=== PATIENT | male | born 1970 | race Native Hawaiian/Other Pacific Islander ===

== ENCOUNTER 2018-06-08 12:23 | Inpatient (IN) | payer OTHER ==
[2018-06-08 12:35] VITALS: BMI 20.9
--- NOTE | 2018-06-08 13:32 | C.PDOC ---
History Of Present Illness 48 y/o male with history of DM presents to ED with c/o "cramping" diffuse abdominal pain for 14 days. Patient reports hard stool associated with nausea and vomiting. Patient denies blood in emesis, recent travel, fever, chills or any other complaints at this time. Time Seen by Provider: 06/08/18 13:10 Chief Complaint (Nursing): Abdominal Pain History Per: Patient History/Exam Limitations: no limitations Onset/Duration Of Symptoms: Days, Waxing/Waning Location Of Pain/Discomfort: Diffuse Past Medical History Reviewed: Historical Data, Nursing Documentation, Vital Signs Vital Signs: Last Vital Signs Temp 98.6 F 06/08/18 22:54 Pulse 74 06/08/18 22:54 Resp 20 06/08/18 22:54 BP 157/73 H 06/08/18 22:54 Pulse Ox 99 06/08/18 23:53 - Medical History PMH: Diabetes Surgical History: No Surg Hx Family History: States: No Known Family Hx - Social History Hx Alcohol Use: No Hx Substance Use: No Review Of Systems Except As Marked, All Systems Reviewed And Found Negative. Constitutional: Negative for: Fever, Chills Gastrointestinal: Positive for: Nausea, Vomiting, Abdominal Pain. Negative for : Diarrhea Skin: Negative for: Rash Physical Exam - Physical Exam Additional Physical Exam Comments: Constitutional: No acute distress. Head: Normocephalic. Atraumatic. Eyes: PERRL. ENT: Moist mucous membranes. Neck: Supple. Cardiovascular: Regular rate. Radial pulse 2+ bilaterally. Chest: No tenderness. Respiratory: Clear to auscultation bilaterally. GI: RUQ and RLQ tenderness. No guarding or rebound Back: No CVA tenderness. Musculoskeletal: No tenderness or swelling of extremities. Skin: No rash. Neurologic: Alert, no focal deficit. ED Course And Treatment - Laboratory Results Result Diagrams: 06/08/18 13:45 06/08/18 14:11 O2 Sat by Pulse Oximetry: 99 (RA) Pulse Ox Interpretation: Normal Medical Decision Making Medical Decision Making: Impression: Abdominal Pain Plan: CT Scan Abd/pelvis with IV contrast, Blood work and UA ordered Zofran, Morphine and IV fluids administered IMPRESSION: Region of diminished enhancement identified involving the left kidney which may reflect pyelonephritis. Differential considerations include sequela of vascular insults/infarct or infiltrating process. Disposition - Disposition Disposition: HOSPITALIZED Disposition Time: 17:30 Condition: GUARDED - Clinical Impression Clinical Impression: Flank pain, Pyelonephritis - Scribe Statement The provider has reviewed the documentation as recorded by the Kaylaibtam Ball All medical record entries made by the Kaylaibe were at my direction and personally dictated by me. I have reviewed the chart and agree that the record accurately reflects my personal performance of the history, physical exam, medical decision making, and the department course for this patient. I have also personally directed, reviewed, and agree with the discharge instructions and disposition.
[2018-06-08] MEDS ORDERED: Sodium Chloride 0.9% 1,000 ML IV STA (13:35)
[2018-06-08] MEDS ORDERED: Morphine 4 MG/ML VIAL ONE (13:46)
[2018-06-08] MEDS ORDERED: Sodium Chloride 0.9% 1,000 ML ONE (13:46)
[2018-06-08 13:52] LABS: BASO % 0.5 % (0.0-2.0); EOS # 0.3 K/uL (0.0-0.7); EOS % 3.8 % (0.0-4.0); HEMOGLOBIN 11.2 g/dL (12.0-18.0); LYMPH # 2.3 K/uL (1.0-4.3); LYMPH % 27.9 % (20.0-40.0); MEAN CELL VOLUME 81.2 fL (80.0-94.0); MEAN CORPUSCULAR HGB CONC 34.4 g/dL (33.0-37.0); MEAN PLATELET VOLUME 10.2 fL (7.2-11.7); MONO # 0.7 K/uL (0.0-0.8); MONO % 8.1 % (0.0-10.0); NEUT # 4.9 K/uL (1.8-7.0); NEUT % 59.7 % (50.0-75.0); RED CELL DISTRIBUTION WIDTH 13.8 % (11.5-14.5); WHITE BLOOD COUNT 8.2 K/uL (4.8-10.8)
[2018-06-08 14:07] LABS: URINE BILIRUBIN NEGATIVE (NEGATIVE); URINE BLOOD 2+ (NEGATIVE); URINE CLARITY Clear (Clear); URINE COLOR Yellow (YELLOW); URINE GLUCOSE (UA) 3+ mg/dL (Normal); URINE LEUKOCYTE ESTERASE NEG Leu/uL (Negative); URINE PROTEIN 3+ mg/dL (NEGATIVE); URINE UROBILINOGEN NORMAL mg/dL (0.2-1.0)
[2018-06-08 14:26] LABS: ALB/GLOB RATIO 1.3 (1.0-2.1); ALBUMIN 3.4 g/dL (3.5-5.0); ALT/SGPT 22 U/L (21-72); AST/SGOT 11 U/L (17-59); BLOOD UREA NITROGEN 17 mg/dL (9-20); GFR NON-AFRICAN AMERICAN > 60; LIPASE 116 U/L (23-300)
[2018-06-08] MEDS ORDERED: Iohexol 350mg/ml 100 ML ONE (16:29)
--- NOTE | 2018-06-08 17:16 | CT ---
Date of service: 06/08/2018 PROCEDURE: CT Abdomen and Pelvis with contrast HISTORY: abd pain, vomiting, R sided COMPARISON: None available. TECHNIQUE: Contrast dose: 100 mL Omnipaque 350 Radiation dose: Total exam DLP = 422.46 mGy-cm. This CT exam was performed using one or more of the following dose reduction techniques: Automated exposure control, adjustment of the mA and/or kV according to patient size, and/or use of iterative reconstruction technique. FINDINGS: LOWER THORAX: No visible consolidation, pleural effusion, or pneumothorax. Dense coronary artery calcification. Bilateral gynecomastia. LIVER: Unremarkable. GALLBLADDER AND BILE DUCTS: Unremarkable. PANCREAS: Unremarkable. SPLEEN: 10 mm probable splenule. Otherwise unremarkable. ADRENALS: Unremarkable. KIDNEYS AND URETERS: Region of diminished enhancement identified involving the left kidney which may reflect pyelonephritis. Differential considerations include sequela of vascular insults/infarct or infiltrating process. No hydronephrosis or obstructing calculus identified. VASCULATURE: Dense atherosclerotic calcifications of the aorta and branches. No aortic aneurysm. BOWEL: Stomach is nondistended. Lack of oral contrast limits evaluation for bowel pathology. Bowel loops appear within normal limits of caliber without evidence of obstruction. APPENDIX: The appendix appears within normal limits of caliber. No secondary signs of acute appendicitis. PERITONEUM: No significant free fluid. No definite free air. LYMPH NODES: No bulky adenopathy identified. BLADDER: Unremarkable. REPRODUCTIVE: Unremarkable. BONES: Degenerative changes. OTHER FINDINGS: None. IMPRESSION: Region of diminished enhancement identified involving the left kidney which may reflect pyelonephritis. Differential considerations include sequela of vascular insults/infarct or infiltrating process.
[2018-06-08] MEDS ORDERED: Ciprofloxacin 400mg/200ml D5W 400 MG/200 ML BAG IVPB STA (17:44)
[2018-06-08] MEDS ORDERED: Ciprofloxacin 400mg/200ml D5W 400 MG/200 ML BAG IVPB ONE (18:58)
[2018-06-08] MEDS ORDERED: Enalaprilat 2.5 MG/2 ML ONE (19:56)
--- NOTE | 2018-06-08 21:17 | CP.PCM.HP ---
<Yaquelin Valentino - Last Filed: 06/08/18 22:22> History of Present Illness - History of Present Illness History of Present Illness: Mr. Pepe is a 48 year old male who presents with complaints of intermittent abdominal pain x 10 days that is worse in the morning. Patient denies any triggers or trauma. He denies any provoking or alleviating factors. He describes the pain as "crushing", non-radiating, and rates the pain an 8/10. Patient hasn't attempted any modalities for the pain but has used Milk of Magnesia for his constipation. He denies any association with food, or any recent dietary or medication changes. Associated symptoms include 2 episodes of non-bloody/non-billious vomiting yesterday. He admits to constipation and chills. He denies any fever, headache, chest pain, shortness of breath, diarrhea, or any urinary symptoms. He does admit to a unintentional 15lbs weight loss over the past 2 months. Patient does not have a primary doctor. He gets his medications from [facility] and has been non-compliant with them. ROS: As stated above PMHx: HTN, GERD, Diabetes PSHx: Oral Biopsy All: NKDA SocialHx: 7.5 Pack-Years, Denies EtoH or Illicit Drug use Hos: Denies Famhx: Denies Meds: Unspecified Anti-Hypertensive Medication 20mg Daily, Metformin 500 TID PMD: None Present on Admission - Present on Admission Any Indicators Present on Admission: Yes History of Uncontrolled Diabetes: Yes Review of Systems - Review of Systems All systems: reviewed and no additional remarkable complaints except (As per HPI ) Review of Systems: As per HPI Past Patient History - Past Social History Smoking Status: Light Smoker < 10 Cigarettes Daily - CARDIAC Hx Cardiac Disorders: No - PULMONARY Hx Respiratory Disorders: No - NEUROLOGICAL Hx Neurological Disorder: No - HEENT Hx HEENT Problems: No - RENAL Hx Chronic Kidney Disease: No - ENDOCRINE/METABOLIC Hx Diabetes Mellitus Type 2: Yes - HEMATOLOGICAL/ONCOLOGICAL Hx Blood Disorders: No - INTEGUMENTARY Hx Dermatological Problems: No - MUSCULOSKELETAL/RHEUMATOLOGICAL Hx Musculoskeletal Disorders: No - GASTROINTESTINAL Hx Gastrointestinal Disorders: No - GENITOURINARY/GYNECOLOGICAL Hx Genitourinary Disorders: No - PSYCHIATRIC Hx Substance Use: No - SURGICAL HISTORY Hx Surgeries: No - ANESTHESIA Hx Anesthesia: No Meds Home Medications: Home Medication List Medication Instructions Recorded Confirmed Type Levofloxacin [Levaquin] 1 tab PO DAILY #10 tablet 06/08/18 Rx Allergies/Adverse Reactions: Allergies Allergy/AdvReac Type Severity Reaction Status Date / Time No Known Allergies Allergy Verified 06/08/18 12:33 Physical Exam - Constitutional Appears: Non-toxic, No Acute Distress - Head Exam Head Exam: ATRAUMATIC, NORMAL INSPECTION, NORMOCEPHALIC - Eye Exam Eye Exam: EOMI, Normal appearance. absent: Scleral icterus - ENT Exam ENT Exam: Mucous Membranes Moist Additional comments: Poor Dentition, Breath malodorous. - Neck Exam Neck exam: Positive for: Normal Inspection - Respiratory Exam Respiratory Exam: Clear to Auscultation Bilateral, NORMAL BREATHING PATTERN. absent: Rales, Rhonchi, Wheezes - Cardiovascular Exam Cardiovascular Exam: RRR, +S1, +S2. absent: JVD - GI/Abdominal Exam GI & Abdominal Exam: Normal Bowel Sounds, Soft, Tenderness (RUQ/Epigastric). absent: Bruit, Firm, Guarding, Hernia, Organomegaly, Rebound, Rigid Additional comments: Negative Guevara's Sign. - Extremities Exam Extremities exam: Positive for: normal capillary refill, normal inspection. Negative for: pedal edema - Back Exam Back exam: tenderness (Right Posteior Ribs (8-10)). absent: CVA tenderness (L) , CVA tenderness (R) - Neurological Exam Neurological exam: Alert, Oriented x3 - Psychiatric Exam Psychiatric exam: Normal Affect, Normal Mood - Skin Skin Exam: Dry, Intact, Normal Color, Warm Results - Vital Signs Recent Vital Signs: Last Vital Signs Temp 97.7 F 06/08/18 17:33 Pulse 75 06/08/18 20:41 Resp 16 06/08/18 20:48 BP 170/82 H 06/08/18 20:41 Pulse Ox 100 06/08/18 20:41 - Labs Result Diagrams: 06/08/18 13:45 06/08/18 14:11 Labs: Laboratory Results - last 24 hr 06/08/18 06/08/18 06/08/18 13:45 13:45 14:11 WBC 8.2 RBC 4.00 L Hgb 11.2 L Hct 32.5 L MCV 81.2 MCH 28.0 MCHC 34.4 RDW 13.8 Plt Count 226 MPV 10.2 Neut % (Auto) 59.7 Lymph % (Auto) 27.9 [place] % (Auto) 8.1 Eos % (Auto) 3.8 Baso % (Auto) 0.5 Neut # (Auto) 4.9 Lymph # (Auto) 2.3 Irion # (Auto) 0.7 Eos # (Auto) 0.3 Baso # (Auto) 0.0 Sodium 134 Potassium 4.4 Chloride 102 Carbon Dioxide 22 Anion Gap 14 BUN 17 Creatinine 1.2 Est GFR ( Amer) > 60 Est GFR (Non-Af Amer) > 60 POC Glucose (mg/dL) Random Glucose 354 H Calcium 9.0 Total Bilirubin 0.4 AST 11 L ALT 22 Alkaline Phosphatase 131 H Total Protein 6.0 L Albumin 3.4 L Globulin 2.6 Albumin/Globulin Ratio 1.3 Lipase 116 Urine Color Yellow Urine Clarity Clear Urine pH 5.0 Ur Specific [place] 1.023 Urine Protein 3+ H Urine Glucose (UA) 3+ H Urine Ketones Negative Urine Blood 2+ H Urine Nitrate Negative Urine Bilirubin Negative Urine Urobilinogen Normal Ur Leukocyte Esterase Neg Urine WBC (Auto) 1 Urine RBC (Auto) 11 H 06/08/18 18:24 WBC RBC Hgb Hct MCV MCH MCHC RDW Plt Count MPV Neut % (Auto) Lymph % (Auto) [place] % (Auto) Eos % (Auto) Baso % (Auto) Neut # (Auto) Lymph # (Auto) [place] # (Auto) Eos # (Auto) Baso # (Auto) Sodium Potassium Chloride Carbon Dioxide Anion Gap BUN Creatinine Est GFR ( Amer) Est GFR (Non-Af Amer) POC Glucose (mg/dL) 252 H Random Glucose Calcium Total Bilirubin AST ALT Alkaline Phosphatase Total Protein Albumin Globulin Albumin/Globulin Ratio Lipase Urine Color Urine Clarity Urine pH Ur Specific [place] Urine Protein Urine Glucose (UA) Urine Ketones Urine Blood Urine Nitrate Urine Bilirubin Urine Urobilinogen Ur Leukocyte Esterase Urine WBC (Auto) Urine RBC (Auto) Assessment & Plan - Assessment and Plan (Free Text) Assessment: 48 year old [place] male with PMHx of HTN, GERD, Diabetes Type II, and medication non-compliance presents with abdominal pain. CT Abd/Pelvis suspicious for left kidney pyelonephritis. Patient admitted for evaluation and treatment of abdominal pain and left kidney lesion. Plan: Abdominal Pain ED: Zofran, Morphine, Fluids. CT Abd/Pelvis (Adm): Region of diminished enhancement identified involving the left kidney which may reflect pyelonephritis. Differential considerations include sequela of vascular insults/infarct or infiltrating process. Low suspicion for pyelonephritis. No perinephric stranding, no Leukocytosis, No signs of UTI in UA. UA (Admission): 3+ Protein, 3+Glucose, 2+ Blood, 11 Urine RBC's Lipase - 116 | Alk Phos - 131. Abdominal US Zofran PRN Morphine 2 Q4H PRN for severe pain and Tylenol 650 Q6H for Moderate Pain Consider GI Consult. Abnormal Left Kidney CT scan Findings. CT Abd/Pelvis (Adm): Region of diminished enhancement identified involving the left kidney which may reflect pyelonephritis. Differential considerations include sequela of vascular insults/infarct or infiltrating process. Low Suspicion for Pyelonephritis. UA positive for blood. Must rule out malignancy in the setting of anemia and unintentional weight loss Urine Cytology Urine Microalbumin Urine Cultures Urology Consult (Dr. Moctezuma) Blood in Urine Urine Cytology/Microalbumine Normocytic Anemia Iron, TIBC, Ferritin, Haptoglobin, Retic Count, B12, Folate Monitor H/H. Consider Stool Occult Blood Uncontrolled Diabetes Home Metformin 500 TID (Held) Start GlipiZIDE SR 10mg PO Daily Insulin Medium Sliding Scale ACHS Diabetic Education Hx of GERD Protonix Daily Hx of HTN Monitor BP Consider starting Lisinopril Proph Lovenox Daily Protonix Daily Diabetic Diet 2grams Sodium Patient seen and discussed with Attending Yaquelin Valentino, PGY-2 <Shmuel Villanueva P - Last Filed: 06/09/18 07:33> Results - Vital Signs Recent Vital Signs: Last Vital Signs Temp 98.5 F 06/09/18 00:00 Pulse 74 06/09/18 00:00 Resp 20 06/09/18 00:00 BP 144/70 06/09/18 00:00 Pulse Ox 99 06/09/18 00:00 - Labs Result Diagrams: 06/08/18 13:45 06/08/18 14:11 Labs: Laboratory Results - last 24 hr 06/08/18 06/08/18 06/08/18 13:45 13:45 14:11 WBC 8.2 RBC 4.00 L Hgb 11.2 L Hct 32.5 L MCV 81.2 MCH 28.0 MCHC 34.4 RDW 13.8 Plt Count 226 MPV 10.2 Neut % (Auto) 59.7 Lymph % (Auto) 27.9 [place] % (Auto) 8.1 Eos % (Auto) 3.8 Baso % (Auto) 0.5 Neut # (Auto) 4.9 Lymph # (Auto) 2.3 [place] # (Auto) 0.7 Eos # (Auto) 0.3 Baso # (Auto) 0.0 Retic Count Haptoglobin Sodium 134 Potassium 4.4 Chloride 102 Carbon Dioxide 22 Anion Gap 14 BUN 17 Creatinine 1.2 Est GFR ( Amer) > 60 Est GFR (Non-Af Amer) > 60 POC Glucose (mg/dL) Random Glucose 354 H Hemoglobin A1c Calcium 9.0 Iron TIBC % Saturation Ferritin Total Bilirubin 0.4 AST 11 L ALT 22 Alkaline Phosphatase 131 H Total Protein 6.0 L Albumin 3.4 L Globulin 2.6 Albumin/Globulin Ratio 1.3 Lipase 116 Vitamin B12 Folate Urine Color Yellow Urine Clarity Clear Urine pH 5.0 Ur Specific [place] 1.023 Urine Protein 3+ H Urine Glucose (UA) 3+ H Urine Ketones Negative Urine Blood 2+ H Urine Nitrate Negative Urine Bilirubin Negative Urine Urobilinogen Normal Ur Leukocyte Esterase Neg Urine WBC (Auto) 1 Urine RBC (Auto) 11 H 06/08/18 06/08/18 06/08/18 14:11 14:11 14:11 WBC RBC Hgb Hct MCV MCH MCHC RDW Plt Count MPV Neut % (Auto) Lymph % (Auto) [place] % (Auto) Eos % (Auto) Baso % (Auto) Neut # (Auto) Lymph # (Auto) [place] # (Auto) Eos # (Auto) Baso # (Auto) Retic Count Haptoglobin 277.5 H Sodium Potassium Chloride Carbon Dioxide Anion Gap BUN Creatinine Est GFR ( Amer) Est GFR (Non-Af Amer) POC Glucose (mg/dL) Random Glucose Hemoglobin A1c 14.8 H Calcium Iron TIBC % Saturation Ferritin 41.4 Total Bilirubin AST ALT Alkaline Phosphatase Total Protein Albumin Globulin Albumin/Globulin Ratio Lipase Vitamin B12 172 L Folate 7.6 Urine Color Urine Clarity Urine pH Ur Specific [place] Urine Protein Urine Glucose (UA) Urine Ketones Urine Blood Urine Nitrate Urine Bilirubin Urine Urobilinogen Ur Leukocyte Esterase Urine WBC (Auto) Urine RBC (Auto) 06/08/18 06/08/18 06/08/18 18:24 21:36 23:44 WBC RBC Hgb Hct MCV MCH MCHC RDW Plt Count MPV Neut % (Auto) Lymph % (Auto) [place] % (Auto) Eos % (Auto) Baso % (Auto) Neut # (Auto) Lymph # (Auto) [place] # (Auto) Eos # (Auto) Baso # (Auto) Retic Count 1.0 Haptoglobin Sodium Potassium Chloride Carbon Dioxide Anion Gap BUN Creatinine Est GFR ( Amer) Est GFR (Non-Af Amer) POC Glucose (mg/dL) 252 H 237 H Random Glucose Hemoglobin A1c Calcium Iron TIBC % Saturation Ferritin Total Bilirubin AST ALT Alkaline Phosphatase Total Protein Albumin Globulin Albumin/Globulin Ratio Lipase Vitamin B12 Folate Urine Color Urine Clarity Urine pH Ur Specific [place] Urine Protein Urine Glucose (UA) Urine Ketones Urine Blood Urine Nitrate Urine Bilirubin Urine Urobilinogen Ur Leukocyte Esterase Urine WBC (Auto) Urine RBC (Auto) 06/08/18 23:44 WBC RBC Hgb Hct MCV MCH MCHC RDW Plt Count MPV Neut % (Auto) Lymph % (Auto) [place] % (Auto) Eos % (Auto) Baso % (Auto) Neut # (Auto) Lymph # (Auto) [place] # (Auto) Eos # (Auto) Baso # (Auto) Retic Count Haptoglobin Sodium Potassium Chloride Carbon Dioxide Anion Gap BUN Creatinine Est GFR ( Amer) Est GFR (Non-Af Amer) POC Glucose (mg/dL) Random Glucose Hemoglobin A1c Calcium Iron 48 L TIBC 321 % Saturation 15 L Ferritin Total Bilirubin AST ALT Alkaline Phosphatase Total Protein Albumin Globulin Albumin/Globulin Ratio Lipase Vitamin B12 Folate Urine Color Urine Clarity Urine pH Ur Specific [place] Urine Protein Urine Glucose (UA) Urine Ketones Urine Blood Urine Nitrate Urine Bilirubin Urine Urobilinogen Ur Leukocyte Esterase Urine WBC (Auto) Urine RBC (Auto) Attending/Attestation - Attestation I have personally seen and examined this patient.: Yes I have fully participated in the care of the patient.: Yes I have reviewed all pertinent clinical information: Yes Notes (Text): Assessment * Abd pain started as crampy pain 10 days back, most of the abd, now localized to right upper abd, right lower ribs, with incidental finding on the CT abd/ pelvis with iv contrast of small area of left kidney not taking contrast with no inflammation around and microscopic hematuria. Fluid in the colon is from ma citrate that patient had the day prior. * Uncontrolled DM patient only takes metformin, gets from [facility], doesn't f/u with any physician in [place], recent 15 lb weight loss dd of uncontrolled dm vs multiple other reason could be. Plan * Added Glipizide xl for dm, to add to metformin, and metformin to be held for 3 days due to iv contrast * DM education * Urology consult for f/u start with cytology, if persist hematuria or abnormal cytology will need cystocopy, and biopsy of the lesion * Since the dd of left renal lesion is infarction will do base line echo * USG of the abd due to right sided abd pain. * Hold off on antibiotics as no inflammation around the kidney and clinically, radiologically not pyelo * See orders for detail.
[2018-06-08] MEDS ORDERED: Glucagon Recombinant 1 mg Inj IM PRN (21:49)
[2018-06-08] MEDS ORDERED: Dextrose 50% SYRINGE Inj (50 ml) IV PRN (21:49)
[2018-06-08] MEDS: (Novolin R) Insulin Human Regular 100 units/ml vial SC SCH (22:16)
[2018-06-08 22:55] VITALS: RESP 20
[2018-06-09 00:02] LABS: FERRITIN 41.4 ng/mL
[2018-06-09 00:32] LABS: FOLATE 7.6 ng/mL
[2018-06-09] MEDS ORDERED: Pantoprazole 40 mg EC Tab PO SCH (06:00)
[2018-06-09 06:25] LABS: IRON 48 ug/dL (49-181)
[2018-06-09 06:35] LABS: TOTAL IRON BINDING CAPACITY 321 ug/dL (250-450)
[2018-06-09 06:47] LABS: % IRON SATURATION 15 (20-55)
[2018-06-09 07:58] VITALS: BP 180/86; PULSE 69; TEMP 97.8; O2SAT 100
[2018-06-09] MEDS: (Novolin R) Insulin Human Regular 100 units/ml vial SC SCH ×2 (08:02→11:21)
[2018-06-09 08:56] LABS: BASO % 0.6 % (0.0-2.0); EOS # 0.3 K/uL (0.0-0.7); EOS % 3.4 % (0.0-4.0); HEMOGLOBIN 10.9 g/dL (12.0-18.0); LYMPH # 2.1 K/uL (1.0-4.3); LYMPH % 26.3 % (20.0-40.0); MEAN CELL VOLUME 80.6 fL (80.0-94.0); MEAN CORPUSCULAR HEMOGLOBIN 28.1 pg (27.0-31.0); MEAN CORPUSCULAR HGB CONC 34.8 g/dL (33.0-37.0); MONO # 0.6 K/uL (0.0-0.8); MONO % 7.2 % (0.0-10.0); NEUT # 5.1 K/uL (1.8-7.0); NEUT % 62.5 % (50.0-75.0); RBC 3.89 Mil/uL (4.40-5.90); RED CELL DISTRIBUTION WIDTH 13.8 % (11.5-14.5); WHITE BLOOD COUNT 8.2 K/uL (4.8-10.8)
[2018-06-09 09:03] LABS: PROTHROMBIN TIME 11.3 SECONDS (9.7-12.2)
[2018-06-09 09:18] LABS: ALB/GLOB RATIO 1.3 (1.0-2.1); ALBUMIN 3.4 g/dL (3.5-5.0); CALCIUM 9.4 mg/dl (8.6-10.4)
[2018-06-09] MEDS ORDERED: GlipiZIDE 10 mg SR Tab PO SCH (10:00)
[2018-06-09] MEDS ORDERED: Enoxaparin 40 mg Syringe SC SCH (10:00)
--- NOTE | 2018-06-09 10:45 | US ---
HISTORY: Abdominal Pain COMPARISON: CT abdomen pelvis with IV contrast performed 06/08/18 TECHNIQUE: Sonographic evaluation of the abdomen. FINDINGS: LIVER: Measures 12.9 cm in sagittal dimension and appears within normal limits of size, shape, and echotexture. No focal hepatic mass identified. The main portal vein appears patent with normal directional flow. No intrahepatic bile duct dilatation. GALLBLADDER: No gallstones. No gallbladder wall thickening. Negative sonographic Guevara's sign as assessed by the search optimization analyst. COMMON BILE DUCT: Measures 2 mm. No stones. No dilatation. PANCREAS: Not well visualized. RIGHT KIDNEY: Measures 12.6 x 6.7 x 5.9cm. No obstructing calculus or hydronephrosis identified. LEFT KIDNEY: Measures 12.0 x 5.8 x 5.9cm. No obstructing calculus or hydronephrosis identified. Focal region of decreased echogenicity involving the lateral mid pole corresponding with hypodense region demonstrated on CT performed 06/01/18. SPLEEN: Measures approximately 8.9 cm. AORTA: Limited views appear unremarkable. IVC: Limited views appear unremarkable. OTHER FINDINGS: None. IMPRESSION: Focal region of decreased echogenicity involving the lateral mid pole corresponding with hypodense region demonstrated on CT performed 06/01/18. Appearance remains consistent with pyelonephritis. Correlate clinically.
--- NOTE | 2018-06-09 17:52 | CP.PCM.DIS ---
<Herbie Ferrell - Last Filed: 06/09/18 17:37> Provider - Provider Date of Admission: 06/08/18 18:11 Attending physician: Shmuel Villanueva MD Time Spent in preparation of Discharge (in minutes): 45 Diagnosis - Discharge Diagnosis (1) Flank pain Status: Acute Hospital Course - Lab Results Lab Results: Micro Results 06/08/18 13:45 Urine,Clean Catch Urine Culture - Final No Growth (<1,000 CFU/ML) Most Recent Lab Values WBC 8.2 K/uL (4.8-10.8) 06/09/18 08:37 RBC 3.89 Mil/uL (4.40-5.90) L 06/09/18 08:37 Hgb 10.9 g/dL (12.0-18.0) L 06/09/18 08:37 Hct 31.4 % (35.0-51.0) L 06/09/18 08:37 MCV 80.6 fL (80.0-94.0) 06/09/18 08:37 MCH 28.1 pg (27.0-31.0) 06/09/18 08:37 MCHC 34.8 g/dL (33.0-37.0) 06/09/18 08:37 RDW 13.8 % (11.5-14.5) 06/09/18 08:37 Plt Count 205 K/uL (130-400) 06/09/18 08:37 MPV 10.0 fL (7.2-11.7) 06/09/18 08:37 Neut % (Auto) 62.5 % (50.0-75.0) 06/09/18 08:37 Lymph % (Auto) 26.3 % (20.0-40.0) 06/09/18 08:37 [place] % (Auto) 7.2 % (0.0-10.0) 06/09/18 08:37 Eos % (Auto) 3.4 % (0.0-4.0) 06/09/18 08:37 Baso % (Auto) 0.6 % (0.0-2.0) 06/09/18 08:37 Neut # (Auto) 5.1 K/uL (1.8-7.0) 06/09/18 08:37 Lymph # (Auto) 2.1 K/uL (1.0-4.3) 06/09/18 08:37 [place] # (Auto) 0.6 K/uL (0.0-0.8) 06/09/18 08:37 Eos # (Auto) 0.3 K/uL (0.0-0.7) 06/09/18 08:37 Baso # (Auto) 0.0 K/uL (0.0-0.2) 06/09/18 08:37 Retic Count 1.0 % (0.5-1.5) 06/08/18 23:44 Haptoglobin 277.5 mg/dL (30.0-200.0) H 06/08/18 14:11 PT 11.3 SECONDS (9.7-12.2) 06/09/18 08:37 INR 1.0 06/09/18 08:37 APTT 32 SECONDS (21-34) 06/09/18 08:37 Sodium 135 mmol/L (132-148) 06/09/18 08:36 Potassium 4.9 mmol/L (3.6-5.2) 06/09/18 08:36 Chloride 102 mmol/L (98-107) 06/09/18 08:36 Carbon Dioxide 24 mmol/L (22-30) 06/09/18 08:36 Anion Gap 14 (10-20) 06/09/18 08:36 BUN 18 mg/dL (9-20) 06/09/18 08:36 Creatinine 1.6 mg/dL (0.8-1.5) H 06/09/18 08:36 Est GFR ( Amer) 56 06/09/18 08:36 Est GFR (Non-Af Amer) 47 06/09/18 08:36 POC Glucose (mg/dL) 377 mg/dL (65-110) H 06/09/18 11:12 Random Glucose 310 mg/dL (75-110) H 06/09/18 08:36 Hemoglobin A1c 14.8 % (4.2-6.5) H 06/08/18 14:11 Calcium 9.4 mg/dl (8.6-10.4) 06/09/18 08:36 Magnesium 2.1 mg/dL (1.6-2.3) 06/09/18 08:36 Iron 48 ug/dL (49-181) L 06/08/18 23:44 TIBC 321 ug/dL (250-450) 06/08/18 23:44 % Saturation 15 (20-55) L 06/08/18 23:44 Ferritin 41.4 ng/mL 06/08/18 14:11 Total Bilirubin 0.6 mg/dL (0.2-1.3) 06/09/18 08:36 AST 11 U/L (17-59) L 06/09/18 08:36 ALT 20 U/L (21-72) L 06/09/18 08:36 Alkaline Phosphatase 137 U/L (38-126) H 06/09/18 08:36 Total Protein 6.2 g/dL (6.3-8.3) L 06/09/18 08:36 Albumin 3.4 g/dL (3.5-5.0) L 06/09/18 08:36 Globulin 2.7 gm/dL (2.2-3.9) 06/09/18 08:36 Albumin/Globulin Ratio 1.3 (1.0-2.1) 06/09/18 08:36 Lipase 116 U/L (23-300) 06/08/18 14:11 Vitamin B12 172 pg/mL (239-931) L 06/08/18 14:11 Folate 7.6 ng/mL 06/08/18 14:11 Urine Color Yellow (YELLOW) 06/08/18 13:45 Urine Clarity Clear (Clear) 06/08/18 13:45 Urine pH 5.0 (5.0-8.0) 06/08/18 13:45 Ur Specific [place] 1.023 (1.003-1.030) 06/08/18 13:45 Urine Protein 3+ mg/dL (NEGATIVE) H 06/08/18 13:45 Urine Glucose (UA) 3+ mg/dL (Normal) H 06/08/18 13:45 Urine Ketones Negative mg/dL (NEGATIVE) 06/08/18 13:45 Urine Blood 2+ (NEGATIVE) H 06/08/18 13:45 Urine Nitrate Negative (NEGATIVE) 06/08/18 13:45 Urine Bilirubin Negative (NEGATIVE) 06/08/18 13:45 Urine Urobilinogen Normal mg/dL (0.2-1.0) 06/08/18 13:45 Ur Leukocyte Esterase Neg Vanessa/uL (Negative) 06/08/18 13:45 Urine WBC (Auto) 1 /hpf (0-5) 06/08/18 13:45 Urine RBC (Auto) 11 /hpf (0-3) H 06/08/18 13:45 Urine Microalbumin 542.9 mg/L (0.0-16.6) H 06/09/18 13:53 - Hospital Course Hospital Course: HPI: Mr. Pepe is a 48 year old male who presents with complaints of intermittent abdominal pain x 10 days that is worse in the morning. Patient denies any triggers or trauma. He denies any provoking or alleviating factors. He describes the pain as "crushing", non-radiating, and rates the pain an 8/10. Patient hasn't attempted any modalities for the pain but has used Milk of Magnesia for his constipation. He denies any association with food, or any recent dietary or medication changes. Associated symptoms include 2 episodes of non-bloody/non-billious vomiting yesterday. He admits to constipation and chills. He denies any fever, headache, chest pain, shortness of breath, diarrhea, or any urinary symptoms. He does admit to a unintentional 15lbs weight loss over the past 2 months. Patient does not have a primary doctor. He gets his medications from [facility] and has been non-compliant with them. Hospital Course: Patient was admitted for intermittent abdominal pain. Intial CT of the abdomen was suspicious for pyelonephritis, although initial UA showed no evidence of UTI and patient was not complaining of any urinary symptoms. Patient has a number of chronic medical conditions including hypertension and diabetes which have not been properly addressed, and patient is non-complliant with therapy. He states he takes his medications daily but does not check blood sugar or blood pressure. Though clinical picture was not acutely concerning for pyelonephritis, patients labs and vitals indicated that his chronic medical conditions were poorly controlled. Pt had A1C of 14.8. His total cholesterol and LDL were elevated. SBP ranged form 130s to 200s. Patient is also a long time smoker. Due to the clinical picture not correlating with the initial imaging finding, renal infarct was suspected and abdominal US was ordered for follow up. Renal US was still suggestive of pyelonephritis. However, patient stated on exam that his abdominal pain had completely resolved and that he was "bored" and no longer wanted to remain hospitalized. The medical team attempted to convince the patient of his need for hospitalization, however he chose to sign out against medical advice (AMA). Patient was made aware of the risks of signing out AMA including DKA, hypoglycemic crisis, sepsis , [place], stroke, cardiac and/or respiratory arrest, and sudden . The patient stated that he understood these risks and was nonetheless choosing to leave AMA. Imaging: -CT Abd/Pelvis 06/08/2018: Region of diminished enhancement identified involving the left kidney which may reflect pyelonephritis. Differential considerations include sequela of vascular insults/infarct or infiltrating process. -Abd US 06/09/2018: Focal region of decreased echogenicity involving the lateral mid pole corresponding with hypdense region demonstrated on CT performed on 06/01/18. Appearance remains clinically consistent with pyelonephritis. Correlate clinically. Plan: Pt left AMA. Risks explained to patient including DKA, hypoglycemic crisis, sepsis, NJ, stroke, cardiac and/or respiratory arrest, and sudden . Pt understands risks and chooses to leave AMA. Pt instructed [facility], preferably within the week. Prescriptions for Norvasc 10mg PO daily, Glipizide XR 10mg PO daily, and Lipitor 10mg PO HS were provided. Discharge Exam - Head Exam Head Exam: ATRAUMATIC, NORMAL INSPECTION, NORMOCEPHALIC - Eye Exam Eye Exam: EOMI, Normal appearance Pupil Exam: NORMAL ACCOMODATION, PERRL - ENT Exam ENT Exam: Mucous Membranes Moist - Neck Exam Neck exam: Full Rom - Respiratory Exam Respiratory Exam: NORMAL BREATHING PATTERN, UNREMARKABLE. absent: Rhonchi, Wheezes - Cardiovascular Exam Cardiovascular Exam: REGULAR RHYTHM, RRR, +S1, +S2. absent: Rubs, Systolic Murmur - Extremities Exam Extremities exam: normal inspection - Back Exam Back exam: NORMAL INSPECTION. absent: paraspinal tenderness, vertebral tenderness - Neurological Exam Neurological exam: Alert, CN II-XII Intact, Normal Gait, Oriented x3 - Psychiatric Exam Psychiatric exam: Normal Affect, Normal Mood - Skin Skin Exam: Intact, Normal Color, Warm Discharge Plan - Discharge Medications Prescriptions: amLODIPine [Norvasc] 10 mg PO DAILY #30 tab Atorvastatin [Lipitor] 10 mg PO DIN #30 tab GlipiZIDE SR [Glucotrol XL] 10 mg PO DAILY #30 tab - Follow Up Plan Condition: GOOD Disposition: AGAINST MEDICAL ADVICE Instructions: Carbohydrate Counting Diet, Diabetes Diet , Kidney Infection (DC) Additional Instructions: Pt left AMA. Risks explained to patient including DKA, hypoglycemic crisis, sepsis, NJ, stroke, cardiac and/or respiratory arrest, and sudden . Pt understands risks and chooses to leave AMA. Pt instructed to follow up with PMD or [facility], preferably within the week. Prescriptions for Norvasc 10mg PO daily, Glipizide XR 10mg PO daily, and Lipitor 10mg PO HS were provided. Imaging: FINDINGS: LOWER THORAX: No visible consolidation, pleural effusion, or pneumothorax. Dense coronary artery calcification. Bilateral gynecomastia. LIVER: Unremarkable. GALLBLADDER AND BILE DUCTS: Unremarkable. PANCREAS: Unremarkable. SPLEEN: 10 mm probable splenule. Otherwise unremarkable. ADRENALS: Unremarkable. KIDNEYS AND URETERS: Region of diminished enhancement identified involving the left kidney which may reflect pyelonephritis. Differential considerations include sequela of vascular insults/infarct or infiltrating process. No hydronephrosis or obstructing calculus identified. VASCULATURE: Dense atherosclerotic calcifications of the aorta and branches. No aortic aneurysm. BOWEL: Stomach is nondistended. Lack of oral contrast limits evaluation for bowel pathology. Bowel loops appear within normal limits of caliber without evidence of obstruction. APPENDIX: The appendix appears within normal limits of caliber. No secondary signs of acute appendicitis. PERITONEUM: No significant free fluid. No definite free air. LYMPH NODES: No bulky adenopathy identified. BLADDER: Unremarkable. REPRODUCTIVE: Unremarkable. BONES: Degenerative changes. OTHER FINDINGS: None. IMPRESSION: Region of diminished enhancement identified involving the left kidney which may reflect pyelonephritis. Differential considerations include sequela of vascular insults/infarct or infiltrating process. Referrals: Shree Epps Jr., MD [Staff Provider] - <Samuel Bro - Last Filed: 06/09/18 18:12> Provider - Provider Date of Admission: 06/08/18 18:11 Attending physician: Shmuel Villanueva MD Hospital Course - Lab Results Lab Results: Micro Results 06/08/18 13:45 Urine,Clean Catch Urine Culture - Final No Growth (<1,000 CFU/ML) Most Recent Lab Values WBC 8.2 K/uL (4.8-10.8) 06/09/18 08:37 RBC 3.89 Mil/uL (4.40-5.90) L 06/09/18 08:37 Hgb 10.9 g/dL (12.0-18.0) L 06/09/18 08:37 Hct 31.4 % (35.0-51.0) L 06/09/18 08:37 MCV 80.6 fL (80.0-94.0) 06/09/18 08:37 MCH 28.1 pg (27.0-31.0) 06/09/18 08:37 MCHC 34.8 g/dL (33.0-37.0) 06/09/18 08:37 RDW 13.8 % (11.5-14.5) 06/09/18 08:37 Plt Count 205 K/uL (130-400) 06/09/18 08:37 MPV 10.0 fL (7.2-11.7) 06/09/18 08:37 Neut % (Auto) 62.5 % (50.0-75.0) 06/09/18 08:37 Lymph % (Auto) 26.3 % (20.0-40.0) 06/09/18 08:37 [place] % (Auto) 7.2 % (0.0-10.0) 06/09/18 08:37 Eos % (Auto) 3.4 % (0.0-4.0) 06/09/18 08:37 Baso % (Auto) 0.6 % (0.0-2.0) 06/09/18 08:37 Neut # (Auto) 5.1 K/uL (1.8-7.0) 06/09/18 08:37 Lymph # (Auto) 2.1 K/uL (1.0-4.3) 06/09/18 08:37 [place] # (Auto) 0.6 K/uL (0.0-0.8) 06/09/18 08:37 Eos # (Auto) 0.3 K/uL (0.0-0.7) 06/09/18 08:37 Baso # (Auto) 0.0 K/uL (0.0-0.2) 06/09/18 08:37 Retic Count 1.0 % (0.5-1.5) 06/08/18 23:44 Haptoglobin 277.5 mg/dL (30.0-200.0) H 06/08/18 14:11 PT 11.3 SECONDS (9.7-12.2) 06/09/18 08:37 INR 1.0 06/09/18 08:37 APTT 32 SECONDS (21-34) 06/09/18 08:37 Sodium 135 mmol/L (132-148) 06/09/18 08:36 Potassium 4.9 mmol/L (3.6-5.2) 06/09/18 08:36 Chloride 102 mmol/L (98-107) 06/09/18 08:36 Carbon Dioxide 24 mmol/L (22-30) 06/09/18 08:36 Anion Gap 14 (10-20) 06/09/18 08:36 BUN 18 mg/dL (9-20) 06/09/18 08:36 Creatinine 1.6 mg/dL (0.8-1.5) H 06/09/18 08:36 Est GFR ( Amer) 56 06/09/18 08:36 Est GFR (Non-Af Amer) 47 06/09/18 08:36 POC Glucose (mg/dL) 377 mg/dL (65-110) H 06/09/18 11:12 Random Glucose 310 mg/dL (75-110) H 06/09/18 08:36 Hemoglobin A1c 14.8 % (4.2-6.5) H 06/08/18 14:11 Calcium 9.4 mg/dl (8.6-10.4) 06/09/18 08:36 Magnesium 2.1 mg/dL (1.6-2.3) 06/09/18 08:36 Iron 48 ug/dL (49-181) L 06/08/18 23:44 TIBC 321 ug/dL (250-450) 06/08/18 23:44 % Saturation 15 (20-55) L 06/08/18 23:44 Ferritin 41.4 ng/mL 06/08/18 14:11 Total Bilirubin 0.6 mg/dL (0.2-1.3) 06/09/18 08:36 AST 11 U/L (17-59) L 06/09/18 08:36 ALT 20 U/L (21-72) L 06/09/18 08:36 Alkaline Phosphatase 137 U/L (38-126) H 06/09/18 08:36 Total Protein 6.2 g/dL (6.3-8.3) L 06/09/18 08:36 Albumin 3.4 g/dL (3.5-5.0) L 06/09/18 08:36 Globulin 2.7 gm/dL (2.2-3.9) 06/09/18 08:36 Albumin/Globulin Ratio 1.3 (1.0-2.1) 06/09/18 08:36 Lipase 116 U/L (23-300) 06/08/18 14:11 Vitamin B12 172 pg/mL (239-931) L 06/08/18 14:11 Folate 7.6 ng/mL 06/08/18 14:11 Urine Color Yellow (YELLOW) 06/08/18 13:45 Urine Clarity Clear (Clear) 06/08/18 13:45 Urine pH 5.0 (5.0-8.0) 06/08/18 13:45 Ur Specific [place] 1.023 (1.003-1.030) 06/08/18 13:45 Urine Protein 3+ mg/dL (NEGATIVE) H 06/08/18 13:45 Urine Glucose (UA) 3+ mg/dL (Normal) H 06/08/18 13:45 Urine Ketones Negative mg/dL (NEGATIVE) 06/08/18 13:45 Urine Blood 2+ (NEGATIVE) H 06/08/18 13:45 Urine Nitrate Negative (NEGATIVE) 06/08/18 13:45 Urine Bilirubin Negative (NEGATIVE) 06/08/18 13:45 Urine Urobilinogen Normal mg/dL (0.2-1.0) 06/08/18 13:45 Ur Leukocyte Esterase Neg [place]essa/uL (Negative) 06/08/18 13:45 Urine WBC (Auto) 1 /hpf (0-5) 06/08/18 13:45 Urine RBC (Auto) 11 /hpf (0-3) H 06/08/18 13:45 Urine Microalbumin 542.9 mg/L (0.0-16.6) H 06/09/18 13:53 Attending/Attestation - Attestation I have personally seen and examined this patient.: Yes I have fully participated in the care of the patient.: Yes I have reviewed all pertinent clinical information, including history, physical exam and plan: Yes Notes (Text): Medical attending: Patient was seen and examined by me, agrees the above note by the medical clerk. Ideally I would like the patient to stay, however he left AMA. I came and saw him the patient was readily walking in the hallways of the hospital eating and drinking and I had to redirect him back to his room and begin talking to him. He said that the abdominal pain that initially brought him into the hospital has resolved and that he does not want to stay any further. I went over with him that he has out of control blood sugars, and that he does have elevated blood pressure, and he also is tells us that he is a smoker as well. I went over the results of the CAT scan with him which is suggestive of a renal infarction. The CAT scan said pylonephritis however per review of the urinalysis he does not have white blood cell count does not have leukocyte esterase does not have nitrates he does not have elevated WBC and has not had a fever. There was an increase in the creatinine upwards to 1.6. This might also be reflective of the IV contrast the as well as the recent renal infarction The overnight team ordered a 2-D echo, however the patient left AMA. Despite leaving AMA we still gave him scripts for statin, diabetes medication. I hope that he will follow-up with the outpatient [facility] - however this being said by the way he was talking to me in the medical residents does not appear that he's taking what we've told him seriously. We made it clear to the patient that he is at risk for heart attack and stroke as well as further kidney complications Thank you very much, Samuel Bro
[2018-06-10] MEDS ORDERED: Pneumococcal 23-Valent Vaccine IM ONE (10:00)
[2018-06-10] MEDS ORDERED: Influenza Vaccine 60 mcg/0.5 mL SYR (4YR UP) IM ONE (10:00)
== END 2018-06-09 14:55 | disposition left against medical advice (07) | DRG 320 ==
LOC: C.ER 12:23 → C.9E 18:11 → C.3T 18:48
PROVIDERS: ADMIT Internal Medicine; ATTEND Internal Medicine
DX: N12 Tubulo-interstitial nephritis, not specified as acute or chronic (principal); E11.65 Type 2 diabetes mellitus with hyperglycemia; I10 Essential (primary) hypertension; I25.10 Atherosclerotic heart disease of native coronary artery without angina pectoris; I70.0 Atherosclerosis of aorta; K21.9 Gastro-esophageal reflux disease without esophagitis; K59.00 Constipation, unspecified; N62 Hypertrophy of breast; D73.89 Other diseases of spleen; F17.200 Nicotine dependence, unspecified, uncomplicated; Z91.14 Patient's other noncompliance with medication regimen; Z79.84 Long term (current) use of oral hypoglycemic drugs